=== PATIENT | male | born 1965 | race Caucasian/White ===

== ENCOUNTER 2020-01-11 07:00 | Day surgery (SDC) | payer BC, OTHER ==
[2020-01-07 12:59] VITALS: BMI 26.2
--- OUTSIDE RECORDS SUMMARY | 2020-01-11 07:04 | XMS ---
:1965 Author Organization [facility] Care Team Providers Name Role Phone Samm Valenzuela MD Unavailable Unavailable BonSamm olson MD Unavailable Unavailable BonoaSamm frank MD Unavailable Unavailable BonoanSamm MD Unavailable Unavailable BonoanSamm MD Unavailable Unavailable BonoanSamm MD Unavailable Unavailable BonoanSamm MD Unavailable Unavailable BonoanSamm MD Unavailable Unavailable BonoanSamm MD Unavailable Unavailable BonoanSamm MD Unavailable Unavailable BonoanSamm MD Unavailable Unavailable BonoanSamm MD Unavailable Unavailable BonoanSamm MD Unavailable Unavailable BonoanSamm MD Unavailable Unavailable BonoanSamm MD Unavailable Unavailable BonSamm olson MD Unavailable Unavailable BonSamm olson MD Unavailable Unavailable BonoaSamm frank MD Unavailable Unavailable BonSamm olson MD Unavailable Unavailable BonSamm olson MD Unavailable Unavailable BonSamm olson MD Unavailable Unavailable BonSamm olson MD Unavailable Unavailable BonSamm olson MD Unavailable Unavailable DEONNA PENA Unavailable Unavailable Re-disclosure Warning The records that you are about to access may contain information from federally- assisted alcohol or drug abuse programs. If such information is present, then the following federally mandated warning applies: This information has been disclosed to you from records protected by federal confidentiality rules (42 CFR part 2). The federal rules prohibit you from making any further disclosure of this information unless further disclosure is expressly permitted by the written consent of the person to whom it pertains or as otherwise permitted by 42 CFR part 2. A general authorization for the release of medical or other information is NOT sufficient for this purpose. The Federal rules restrict any use of the information to criminally investigate or prosecute any alcohol or drug abuse patient.The records that you are about to access may contain highly sensitive health information, the redisclosure of which is protected by Article 27-F of the [facility] Public Health law. If you continue you may haveaccess to information: Regarding HIV / AIDS; Provided by facilities licensed or operated by the [facility] Office of Mental Health; or Provided by the [facility] Office for People With Developmental Disabilities. If such information is present, then the following [facility] mandated warning applies: This information has been disclosed to you from confidential records which are protected by state law. State law prohibits you from making any further disclosure of this information without the specific written consent of the person to whom it pertains, or as otherwise permitted by law. Any unauthorized further disclosure in violation of state law may result in a fine or senior living sentence or both. A general authorization for the release of medical or other information is NOT sufficient authorization for further disclosure. Encounters Encounter Providers Location Date Indications Data Source(s ) Outpatient<td Attender: Samm HERRING MD 12/28/19 AsthmaArthral aquilino [place] ID="encounterTy [facility] & 20 ([facility] it[facility] peDescriptionID INFECTIOUS 11:39:00 MD Medici ne 0">Preop DISEASE AM EDT - and Infectious Clearance</td>< 12/28/19 Disease) td>Samm Parrish MD</td><td>METR 01:50:00 OPOLITAN MD PM EDT MEDICINE & INFECTIOUS DISEASE</td><td >12/28/2019</td ><td><content ID="encounterDi agnosisID0-0">A rthralgia</cont ent>, <content ID="encounterDi agnosisID0-1">A sthma</content> </td> Asthma Arthralgia Outpatient<td Attender: [facility] 12/04/2019 OsteoarthritisLumbag o ROYAL ID="encounterTypeDescriptionID0">Telemedicine</td><td>Samm LERMA MEDICINE & 10:15:00 PM ([facility]</td><td>[facility] MEDICINE & INFECTIOUS Nicolas Hernandez INFECTIOUS EDT - MD Medicine DISEASE</td><td>12/04/2019</td><td><content DISEASE 04/2019 and Infectious ID="encounterDiagnosisID0-0">Lumbago</content>, <content 11:59:00 PM Disease) ID="encounterDiagnosisID0-1">Osteoarthritis</content></td> EDT Osteoarthritis Lumbago Outpatient<td Attender: [facility] 09/21/2019 Primary ROYAL ID="encounterTypeDescriptionID0">Follow-Up</td><td>[facility] MEDICINE & 12:09:00 PM InsomniaOsteoarthritisLumbago ([facility] Nicolas VICENTE</td><td>[facility] MEDICINE & INFECTIOUS Nicolas Hernandez INFECTIOUS EDT - MD Medicine DISEASE</td><td>09/21/2019</td><td><content DISEASE and Infectious ID="encounterDiagnosisID0-0">Lumbago</content>, <content 01:30:00 PM Disease) ID="encounterDiagnosisID0-1">Osteoarthritis</content>, EDT <content ID="encounterDiagnosisID0-2">Primary Insomnia</content></td> Primary Insomnia Osteoarthritis Lumbago Outpatient<td ID="encounterTypeDescriptionID0">Electronic At tender: [facility] 08/22/2019 Conjunctivitis ROYAL refill</td><td>Samm Valenzuela MD</td><td>[facility] MEDICINE & 05:36:00 PM ([facility] MEDICINE & INFECTIOUS Nicolas VICENTE INFECTIOUS EDT - MD Medicine DISEASE</td><td>08/22/2019</td><td><content DISEASE and Infectious ID="encounterDiagnosisID0-0">Conjunctivitis</content></td> 11:59:00 PM Disease) EDT Conjunctivitis Outpatient Attender: JEAN, 08/07/2019 06:00:00 Z01.84 [facility] YARITZAdmitter: PARAG PENA EDT [facility] Phylliserrer: Mechelle PENA orsonia YING Z01.84 Medications Medication Brand Start Product Dose Route Administrative Pharmacy at Indications Reaction Description Data Name Date Form Instructions Instructions Source(s) levocetiriz Levoce active levocet irizi ROYAL ine tirizi 2020 ne ([facility] dihydrochlo ne 12:00: dihydrochlo r [place] ride 5 MG Dihydr 00 AM cary 5 MG Med icine Oral Tablet ochlor EDT Oral Tablet and Levocetiriz cary 5 Infecti ous ine MG Disease) Dihydrochlo Oral ride 5 MG Tablet Oral Tablet olopatadine Olopat active olopata dine ROYAL 1 MG/ML adine 2019 1 MG/ML ([facility] li Ophthalmic HCl 12:00: Ophthalmic t an [place] Solution 0.1% 00 AM Solution Medici ne Olopatadine Ophtha EDT and HCl 0.1% lmic Infectious Ophthalmic Soluti Disease ) Solution on 60 ACTUAT Symbic active 60 ACTUAT [place]AL Budesonide ort 2019 budesonide (Me tropoli 0.16 160-4. 12:00: 0.16 [place] MG/ACTUAT / 5 00 AM MG/ACTUAT / Medicine formoterol MCG/AC EDT formoterol a nd fumarate T fumarate Infecti ous 0.0045 Inhala 0.0045 Disease) MG/ACTUAT tion MG/ACTUAT Metered Aeroso Metered Dose Dose l Inhaler Inhaler [Symbicort] [Symbicort] Symbicort 160-4.5 MCG/ACT Inhalation Aerosol montelukast Singul active montelu kast ROYAL 10 MG Oral air 2018 10 MG Oral ( [facility] Tablet MG 12:00: Tablet [place] [Singulair] Oral 00 AM [Singulair] Medicine Singulair Tablet EST and 10 MG Oral Infectiou s Tablet Disease) Insurance Providers Payer name Policy type Policy ID Covered Covered alliance party's Policy P argelia / Coverage alliance party ID relationship to Hansen Inf ormation type hansen BC PPO [id number] SP [id number] [facility] [employer] Policy 0 Self 0 Behavioral Health [facility] - [employer] Group Policy 0 Self 0 Behavioral Health [facility] - [employer] Group Policy 0 Self 0 Behavioral Health [facility] - United Group Policy 0 Self 0 Behavioral Health [facility] - United Group Policy 0 Self 0 Behavioral Health [facility]B - United Group Policy 0 Self 0 Behavioral Health Problems, Conditions, and Diagnoses Code Display Name Description Problem Type Effective Dates Data Source(s) Z01.84 Encounter for ENCOUNTER FOR Diagnosis 08/07/2019 [facility] antibody response ANTIBODY RESPONSE 06:00:00 AM EDT [facility] Care Corpora tion Surgeries/Procedures Procedure Description Date Indications Data Source(s) Reported medical Reported medical 12/28/2019 [place] history - GERD, history - GERD, 12:00:00 AM ([place] Allergic Rhinitis, Allergic Rhinitis, EDT Med icine and Hiatal Hernia Hiatal Hernia Infectious Di sease) Surgical / Surgical / procedural 12/28/2019 [place] [facility] procedural history history - ERCP 12:00:00 AM ([place] - ERCP EDT Medicine and Infectious Dise ase) 12-LEAD ECG 12/28/2019 [place] PERFORMED 12:00:00 AM ([facility] EDT - Medicine and 12/28/2019 Infectious Dise ase) 12:00:00 AM EDT Clinical summary 12/28/2019 [place] provided to patient 12:00:00 AM ([place] EDT - Medicine and 12/28/2019 Infectious Dise ase) 12:00:00 AM EDT Education 12/28/2019 ROYAL (procedure) 12:00:00 AM ([facility] N EDT - Medicine and 12/28/2019 Infectious Dise ase) 12:00:00 AM EDT Results ID Date Data Source [id number] 01/07/2020 10:00:00 AM EDT [facility] Name Value Range Interpretation Description Data Sup porting Code Source(s) Document(s ) SARS [facility] coronavirus 2 RNA This lab was ordered by MENDEL guido [facility] and reported by [facility]. ID Date Data Source [id number] 12/29/2019 08:07:00 AM EDT [facility] Name Value Range Interpretation Description Data Sup porting Code Source(s) Document(s ) WBC 8.9 3.4-10.8 [facility] x10E3/uL RBC 4.87 4.14-5.8 [facility] x10E6/uL 0 Hemoglobin 15.1 13.0-17. [facility] g/dL 7 Hematocrit 43.6 % 37.5-51. [facility] 0 MCV 90 fL 79-97 [facility] MCH 31.0 pg 26.6-33. [facility] 0 MCHC 34.6 31.5-35. [facility] g/dL 7 RDW 12.3 % 11.6-15. [facility] 4 Platelets 293 150-450 [facility] x10E3/uL Neutrophils 61 % Not [facility] Estab. Lymphs 29 % Not [facility] Estab. Monocytes 8 % Not [facility] Estab. Eos 1 % Not [facility] Estab. Basos 1 % Not [facility] Estab. Neutrophils 5.4 1.4-7.0 [facility] (Absolute) x10E3/uL Lymphs 2.6 0.7-3.1 [facility] (Absolute) x10E3/uL Monocytes(Absol 0.7 0.1-0.9 [facility] viejas) x10E3/uL Eos (Absolute) 0.1 0.0-0.4 [facility] x10E3/uL Baso (Absolute) 0.1 0.0-0.2 [facility] x10E3/uL Immature 0 % Not [facility] Granulocytes Estab. Immature Grans 0.0 0.0-0.1 [facility] (Abs) x10E3/uL ID Date Data Source [id number] 12/29/2019 08:07:00 AM EDT [facility] Name Value Range Interpretation Description Data Sup porting Code Source(s) Document(s ) Glucose 90 mg/dL 65-99 [facility] BUN 16 mg/dL 6-24 [facility] Creatinine 1.11 0.76-1.2 [facility] mg/dL 7 eGFR If 74 >59 [facility] NonAfricn Am mL/min/1 .73 eGFR If Africn 86 >59 [facility] Am mL/min/1 .73 BUN/Creatinine 14 9-20 [facility] Ratio Sodium 142 134-144 [facility] mmol/L Potassium 4.3 3.5-5.2 [facility] mmol/L Chloride 106 96-106 [facility] mmol/L Carbon 23 20-29 [facility] Dioxide, Total mmol/L Calcium 9.6 8.7-10.2 [facility] mg/dL Protein, Total 7.4 g/dL 6.0-8.5 [facility] Albumin 4.8 g/dL 3.8-4.9 [facility] Globulin, 2.6 g/dL 1.5-4.5 [facility] Total A/G Ratio 1.8 1.2-2.2 [facility] Bilirubin, 0.7 0.0-1.2 [facility] Total mg/dL Alkaline 94 IU/L 39-117 [facility] Phosphatase AST (SGOT) 36 IU/L 0-40 [facility] ALT (SGPT) 72 IU/L 0-44 Above high normal [facility] ID Date Data Source [id number] 12/29/2019 08:07:00 AM EDT [facility] Name Value Range Interpretation Description Data Sup porting Code Source(s) Document(s ) Cholesterol, 190 100-199 [facility] Total mg/dL Triglycerides 203 0-149 Above high normal [facility] mg/dL HDL Cholesterol 42 mg/dL >39 [facility] VLDL Cholesterol 35 mg/dL 5-40 [facility] Lucas LDL Chol Calc 113 0-99 Above high normal [facility] (NIH) mg/dL LDL/HDL Ratio 2.7 0.0-3.6 [facility] ratio LDL/HDL Ratio Men Women 1/2 Avg.Risk 1.0 1.5 Avg.Risk 3.6 3.2 2X Avg.Risk 6.2 5.0 3X Avg.Risk 8.0 6.1 ID Date Data Source [id number] 12/29/2019 08:07:00 AM EDT [facility] Name Value Range Interpretation Code Description Data Phoebe rce(s) Supporting Document(s ) INR 1.0 0.8-1.2 [facility] Reference interval is for non-anticoagulated patients. Suggested INR therapeutic range for Cesilia min K antagonist therapy: Standard Dose (moderate inten sity therapeutic range): 2.0 - 3.0 Higher intensity therapeutic range 2.5 - 3.5 Prothrombin Time 10.9 sec 9.1-12.0 [facility] aPTT 28 sec 24-33 [facility] This test has not been validated for mon itoring unfractionated heparintherapy. aPTT-based therapeutic ranges for unfrac tionated heparintherapy have not been established. For general guidelines onHe mario monitoring, refer to the [facility] Directory of Services. ID Date Data Source [id number] 12/26/2019 10:00:00 AM EDT [facility] Name Value Range Interpretation Code Description Data Phoebe rce(s) Supporting Document(s ) SARS-CoV-2 [facility] BY PCR This lab was ordered by SAMM Peraza and reported by [facility]. Procedure Social History Code Duration Value Status Description Data Source(s ) Smoking 12/28/2019 Never smoked completed Never smoked [place] 12:30:00 PM EDT tobacco tobacco (finding) [facility] Vital Signs ID Date Data Source UNK Name Value Range Interpretation Code Description Data Source(s) Body surface area 1.80 m2 1.80 m2 [facility] Y Derived from ([facility] formula Medicine and Infectious Disease) Body mass index 26.6 kg/m2 26.6 kg/m2 [place] (BMI) [Ratio] ([facility] Medicine and Infectious Disease) Body weight 160 [lb_av] 160 [lb_av] ROYAL ([facility] Medicine and Infectious Disease) Body height 65 [in_i] 65 [in_i] ROYAL ([facility] Medicine and Infectious Disease) Body temperature 98.4 [degF] 98.4 [degF] [facility] AY ([facility] Medicine and Infectious Disease) Respiratory rate 18 /min 18 /min ROYAL ([facility] Medicine and Infectious Disease) Heart rate 76 /min 76 /min ROYAL ([facility] Medicine and Infectious Disease) Diastolic blood 78 mm[Hg] 78 mm[Hg] ROYAL pressure ([facility] Medicine and Infectious Disease) Systolic blood 120 mm[Hg] 120 mm[Hg] [place] pressure ([facility] Medicine and Infectious Disease) Body height 65 [in_i] 65 [in_i] ROYAL ([facility] Medicine and Infectious Disease) Respiratory rate 18 /min 18 /min [place] ([facility] Medicine and Infectious Disease) Heart rate 68 /min 68 /min [place] ([facility] Medicine and Infectious Disease) Diastolic blood 82 mm[Hg] 82 mm[Hg] ROYAL pressure ([facility] Medicine and Infectious Disease) Systolic blood 126 mm[Hg] 126 mm[Hg] [place] pressure ([facility] Medicine and Infectious Disease) Patient Treatment Plan of Care Planned Activity Planned Date Details Description Data Source (s) levocetirizine 11/16/2019 [place] dihydrochloride 5 MG Oral 12:00:00 AM EDT ([facility] Tablet Medicine and Infectious Dise ase) olopatadine 1 MG/ML 08/22/2019 [place] Ophthalmic Solution 12:00:00 AM EDT (Javad up MD Medicine and Infectious Dise ase) 60 ACTUAT Budesonide 0.16 07/16/2019 [place] MG/ACTUAT / formoterol 12:00:00 AM EDT (Divya ast[place] fumarate 0.0045 MG/ACTUAT Me dicine and Metered Dose Inhaler Infecti ous Disease) [Symbicort] montelukast 10 MG Oral 02/09/[address] Tablet [Singulair] 12:00:00 AM EST (Viviane LERMA Medicine and Infectious Dise ase)
--- NOTE | 2020-01-11 07:21 | HP ---
History & Physical Update - Physical Physical: No Change - Assessment Assessment: No Change - Plan Plan: No Change
[2020-01-11] MEDS ORDERED: BUPIVACAINE HCL/PF 0.25% (2.5MG/ML) 10 ML VIAL ONE (08:53)
[2020-01-11] MEDS ORDERED: ONDANSETRON 4 MG/2 ML VIAL IVPUSH PRN (08:54)
[2020-01-11] MEDS ORDERED: oxyCODONE HCL 5 MG TABLET PO PRN (08:54)
[2020-01-11] MEDS ORDERED: PROMETHAZINE HCL 25 MG/1 ML VIAL IVPUSH PRN (08:54)
[2020-01-11] MEDS ORDERED: MIDAZOLAM HCL 2 MG/2 ML SINGLE DOSE VIAL ONE (09:00)
[2020-01-11] MEDS ORDERED: PROPOFOL 20 ML ONE (09:00)
[2020-01-11] MEDS ORDERED: LACTATED RINGERS SOLUTION 1,000 ML IV SCH (09:00)
--- NOTE | 2020-01-11 11:13 | OPR ---
DATE OF OPERATION: 01/11/2020 TITLE OF OPERATION: Left Medial partial meniscectomy, chondroplasty medial compartment, and synovectomy (limited). PREOPERATIVE DIAGNOSIS: Left Medial meniscus tear, chondromalacia, synovitis. 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 Rich is a 54 year old male who presented in the preoperative setting with a chief complaint of left knee pain. Based on their mechanical symptoms, pre-injury level of activity, and after failure of conservative management, including activity modification and home exercise program, surgical treatment was discussed. The risks and benefits of surgery and anesthesia were discussed in detail including but not limited to pain, bleeding, infection, scarring, damage to vessels and nerves, failure to obtain the desired result, blood clot, failure to heal, failure to return to sport or work. Understanding the risks and benefits, Mr. Rich opted to proceed with surgical management. SURGEON'S NARRATIVE: After informed consent was obtained the patient was brought the operating room prepped draped in usual fashion sterile technique. Timeout was called. Site verification was performed and perioperative antibodies were administered. A standard anterolateral portal was made and the 4 mm 30 degree arthroscope was inserted into the knee joint without difficulty. This revealed no significant patellofemoral chondromalacia, but did demonstrate synovitic fronts over the inferior and medial portions of the patella. Turning my attention the medial compartment, the patient had a large tear through the body and posterior horn of the medial meniscus that reached the articular surface. 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 I performed a partial medial meniscectomy removing the torn tissue with arthroscopic shaver and biter, as well as a chondroplasty of the tibial plateau and medial femoral condyle. I estimate that I removed approximately 30 percent of the meniscus. The remaining meniscus was intact after the resection from root to root. The ACL was examined and was intact. Turning my attention the lateral compartment the patient, the lateral meniscus was probed, and there was no tear of the lateral meniscus. There was also no significant associated chondromalacia of the lateral compartment. The meniscus was intact from root to root. I then went into the patellofemoral compartment to complete a limited synovectomy, and of the patellofemoral joint. This completed the procedure. I closed incisions with 3-0 nylon. A sterile dressing and xeroform and an CAYLA bandage was placed. The patient tolerated procedure well and arrived recovery in stable condition. Patient will follow up with me in the office within 10-14 days for suture removal. He will start ASA 325 QD starting tomorrow for 30 days. He will be WBAT with crutches, and start Physical therapy within 7 days. Marcel Neal DO
[2020-01-11 12:41] VITALS: TEMP 98.6
[2020-01-11 14:03] VITALS: BP 136/79; PULSE 76
--- NOTE | 2020-01-16 16:04 | PATH ---
Surgical Pathology Report Patient Name: BENJAMIN GOMES Med. Rec. #: [id number] /Age/Gender: 1965 (Age: 54) / M Account: [id number] Location: [facility] AMBULATORY Taken: 01/11/2020 Received: 01/11/2020 Reported: 01/16/2020 Physicians: Marcel Neal MD Specimen(s) Received SHAVINGS LEFT KNEE Clinical History Left medial meniscus tear Final Diagnosis LEFT KNEE SHAVINGS: FRAGMENTS OF CARTILAGE AND SYNOVIAL TISSUE WITH FOCAL REACTIVE CHANGE. Electronically Signed Deacon Steinberg M.D. Gross Description Received in formalin, labeled "shavings left knee," is a 4.6 x 4.5 x 0.4 cm. aggregate of sanon-yellow soft tissue fragments. A commercial representative portion is submitted in one cassette. /01/14/2020 saudi01/14/2020
== END 2020-01-11 13:55 | disposition home or self-care (01) ==
LOC: FASU 07:00
PROVIDERS: ATTEND Orthopaedic Surgery Sports Medicine
PROC: 0SBD4ZZ Excision of Left Knee Joint, Percutaneous Endoscopic Approach (ICD-10-PCS; 2020-01-11)
PROC: 0SBD4ZZ Excision of Left Knee Joint, Percutaneous Endoscopic Approach (ICD-10-PCS; principal; 2020-01-11 10:26)
DX: S83.242A Other tear of medial meniscus, current injury, left knee, initial encounter (principal); M94.262 Chondromalacia, left knee; M65.9 Synovitis and tenosynovitis, unspecified; X58.XXXA Exposure to other specified factors, initial encounter; Y93.9 Activity, unspecified; Y92.9 Unspecified place or not applicable
CPT/HCPCS: 88304-TC; 94760